=== PATIENT | male | born 1940 | race Caucasian/White ===

== ENCOUNTER 2016-04-20 05:12 | Observation (INO) | payer OTHER ==
--- NOTE | 2016-04-20 05:17 | PROVIDER DOCUMENTATION ---
HPI-Respiratory General - General Source: patient, family - History of Present Illness-Resp Quality of Pain: reports: aching Severity in ED: reports: mild Onset/Duration: reports: 4-6 hours ago Timing: reports: still present Context: reports: recent URI Exposure: reports: unknown cause Cough Quality/Degree: reports: mild Episode Frequency: no prior episodes Current Respiratory Medication Therapy: Initiated see nurses note, Initiated A/ A nebulizer Modifying Factors: improves with: albuterol inhaler Similar Symptoms Previously?: Yes Recently seen or treated by another doctor?: Yes <Mauricio Huang - Last Filed: 04/20/16 05:21> <Lulú Tolentino - Last Filed: 04/20/16 09:18> <Kash Marie - Last Filed: 04/20/16 12:23> - General Stated Complaint: soSOB Time Seen by Provider: 04/20/16 05:16 Allergies/Adverse Reactions: Patient Allergies Allergy/AdvReac Type Severity Reaction Status Date / Time clindamycin Allergy Intermediate NAUSEA/VOMI Verified 06/09/13 09:52 TING promethazine HCl * Allergy Mild nervous Verified 04/12/13 11:09 [From Phenergan] Home Medications: Home Medication List Medication Instructions Recorded Confirmed Last Taken Type Albuterol [Albuterol Neb] 2.5 mg INH RTQ6H 04/12/13 06/09/13 Unknown History Aspirin 81 mg PO DAILY 04/12/13 06/09/13 04/12/13 History LISINOpril [Prinivil] 40 mg PO DAILY 04/12/13 06/09/13 Unknown History Levothyroxine [Synthroid] 50 mcg PO 04/12/13 06/09/13 Unknown History Meloxicam [Mobic] 15 mg PO 04/12/13 06/09/13 Unknown History Nadolol [Corgard] 40 mg PO BID 04/12/13 06/09/13 Unknown History Omeprazole [Prilosec] 40 mg PO 04/12/13 06/09/13 Unknown History Fluticasone 50 Mcg Nasal [place] 1 spray ROSALINA DAILY 06/09/13 06/09/13 Unknown History [Flonase] Hydrochlorothiazide 25 mg PO DAILY 06/09/13 06/09/13 Unknown History Insulin Detemir [Levemir Flexpen] 60 units SQ QHS 06/09/13 06/09/13 Unknown History Montelukast [Singulair] 10 mg PO DAILY 06/09/13 06/09/13 Unknown History Saxagliptin [Onglyza] 5 mg PO DAILY 06/09/13 06/09/13 Unknown History Tramadol [Ultram] 50 mg PO Q6H PRN PRN #20 tablet 06/09/13 Unknown Rx Review of Systems - Adult - REVIEW OF SYSTEMS - ADULT Constitutional: reports: no symptoms reported Eyes: reports: no symptoms reported Ears, Nose, Mouth & Throat: reports: no symptoms reported Cardiovascular: reports: no symptoms reported Respiratory: reports: no symptoms reported Gastrointestinal: reports: no symptoms reported Genitourinary: reports: no symptoms reported Musculoskeletal: reports: no symptoms reported Integumentary: reports: no symptoms reported Neurological: reports: no symptoms reported Psychiatric: reports: no symptoms reported Endocrine: reports: no symptoms reported Hematologic/Lymphatic: reports: no symptoms reported Allergic/Immunologic: reports: no symptoms reported All Other Systems: Reviewed and Negative <Mauricio Huang - Last Filed: 04/20/16 05:21> Past History - Adult - PAST MEDICAL HISTORY-ADULT Review of Records: reports: Old Records Reviewed, Nursing Assessment Review, Medications Reviewed, Social history reviewed & non-contributory. Major Childhood Illnesses: reports: denies history Cardiovascular: reports: HTN Respiratory: reports: denies history Gastrointestinal: reports: diverticulosis Obstetrical/Gynecological: reports: denies history Genitourinary: reports: denies history Musculoskeletal: reports: denies history Neurological: reports: denies history Endocrine/Immune: reports: Diabetes, thyroid disorder Other Conditions: reports: denies history - PRIOR SURGERIES/PROCEDURES Surgical/Procedure History: reports: colonoscopy, cholecystectomy, other (back; shoulder, orchiectomy) - PRIOR HOSPITALIZATIONS Prior Hospitalizations: reports: none - IMMUNIZATION STATUS Childhood Immunizations: See Nurse Assessment Flu Vaccine: See Nurse Assessment - FAMILY HISTORY Family History: reviewed, not pertinent <Mauricio Huang - Last Filed: 04/20/16 05:21> Physical Exam-General - PHYSICAL EXAM-ADULT Initial Vital Signs Reviewed: Yes - CONSTITUTIONAL General Appearance: appears well - EYES Eyes: PERRL/EOMI - HEAD, EARS, NOSE, MOUTH & THROAT HENMT: normocephalic/atraumatic - NECK Neck: non-tender - RESPIRATORY Respiratory: wheezing, dull on percussion, prolonged expiration - CARDIOVASCULAR Cardiovascular: normal peripheral pulses <Mauricio Huang - Last Filed: 04/20/16 05:21> Progress <Mauricio Huang - Last Filed: 04/20/16 05:21> - EKG 1 Time of EKG reading by physician:: 05:34 EKG Read and Signed by:: Kash Marie EKG Interpretation (*Must complete 3 of following elements*): Normal Rate: 85 Rhythm: normal sinus rhythm Comments: normal ECG 2 Time of EKG reading by physician:: 09:08 EKG Read and Signed by:: Kash Marie EKG Interpretation (*Must complete 3 of following elements*): Normal Rate: 74 Rhythm: normal sinus rhythm Comments: normal ECG <Lulú Tolentino - Last Filed: 04/20/16 09:18> <Kash Marie - Last Filed: 04/20/16 12:23> - PLAN OF CARE/RESULTS Progress/Plan/Lab Results: Laboratory Tests 04/20/16 04/20/16 04/20/16 05:15 05:15 05:15 WBC RBC Hgb Hct MCV MCH MCHC RDW Std Deviation Plt Count MPV Immature Gran % (Auto) Neut % (Auto) Lymph % (Auto) [place] % (Auto) Eos % (Auto) Baso % (Auto) Immature Gran # (Auto) Neut # (Auto) Lymph # (Auto) [place] # (Auto) Eos # (Auto) Baso # (Auto) PT INR APTT (Factor Assay) Specimen Type Sample Site pH pCO2 pO2 HCO3 Base Excess Oxyhemoglobin ABG O2 Sat (Calculated) ABG O2 Saturation ABG Carboxyhemoglobin ABG Methemoglobin Jules Test A-a O2 Difference Total Hemoglobin Lactate Liter Flow Blood Gas Modality FiO2 % Sodium 129 L Potassium 4.0 Chloride 91 L Carbon Dioxide 25 Anion Gap 13 BUN 14 Creatinine 1.1 Estimated GFR/1.73 m2 > 60 BUN/Creatinine Ratio 13 Glucose 146 H Calculated Osmolality 262 Calcium 9.7 Magnesium 1.9 Total Bilirubin 0.60 AST 14 ALT 17 Alkaline Phosphatase 77 Creatine Kinase 69 Troponin T < 0.010 Ira-T-Ylsogzrxgge Pept 150 Total Protein 6.7 Albumin 4.3 Globulin 2.0 Albumin/Globulin Ratio 2.0 Plasma Lactate 04/20/16 04/20/16 04/20/16 05:15 05:15 05:48 WBC 6.56 RBC 5.86 Hgb 16.1 Hct 47.3 MCV 80.7 L MCH 27.5 MCHC 34.0 RDW Std Deviation 14.8 H Plt Count 199 MPV 9.8 Immature Gran % (Auto) 0.5 Neut % (Auto) 83.7 H Lymph % (Auto) 12.[address] [place] % (Auto) 2.4 Eos % (Auto) 1.1 Baso % (Auto) 0.3 Immature Gran # (Auto) 0.03 Neut # (Auto) 5.49 Lymph # (Auto) 0.[address] [place] # (Auto) 0.16 Eos # (Auto) 0.07 Baso # (Auto) 0.02 PT 13.4 INR 0.99 APTT (Factor Assay) 30.2 Specimen Type Sample Site pH pCO2 pO2 HCO3 Base Excess Oxyhemoglobin ABG O2 Sat (Calculated) ABG O2 Saturation ABG Carboxyhemoglobin ABG Methemoglobin Jules Test A-a O2 Difference Total Hemoglobin Lactate Liter Flow Blood Gas Modality FiO2 % Sodium Potassium Chloride Carbon Dioxide Anion Gap BUN Creatinine Estimated GFR/1.73 m2 BUN/Creatinine Ratio Glucose Calculated Osmolality Calcium Magnesium Total Bilirubin AST ALT Alkaline Phosphatase Creatine Kinase Troponin T Zes-E-Stqemprlsvy Pept Total Protein Albumin Globulin Albumin/Globulin Ratio Plasma Lactate 2.4 H 04/20/16 04/20/16 04/20/16 05:53 08:30 08:30 WBC RBC Hgb Hct MCV MCH MCHC RDW Std Deviation Plt Count MPV Immature Gran % (Auto) Neut % (Auto) Lymph % (Auto) [place] % (Auto) Eos % (Auto) Baso % (Auto) Immature Gran # (Auto) Neut # (Auto) Lymph # (Auto) [place] # (Auto) Eos # (Auto) Baso # (Auto) PT INR APTT (Factor Assay) Specimen Type ARTERIAL Sample Site L BRACHIAL pH 7.47 H pCO2 30 L pO2 63 HCO3 24.2 Base Excess -0.7 Oxyhemoglobin 91.8 L ABG O2 Sat (Calculated) 20.2 ABG O2 Saturation 95.0 ABG Carboxyhemoglobin 2.40 ABG Methemoglobin 1.1 Jules Test NO A-a O2 Difference 99.0 Total Hemoglobin 15.7 Lactate 2.40 H Liter Flow 2.0 Blood Gas Modality CANNULA FiO2 % 28.0 Sodium Potassium Chloride Carbon Dioxide Anion Gap BUN Creatinine Estimated GFR/1.73 m2 BUN/Creatinine Ratio Glucose Calculated Osmolality Calcium Magnesium Total Bilirubin AST ALT Alkaline Phosphatase Creatine Kinase 111 Troponin T < 0.010 Zeg-A-Nrzkshcjivy Pept Total Protein Albumin Globulin Albumin/Globulin Ratio Plasma Lactate Orders Category Date Time Status Cardiac Monitoring DIRECTED Care 04/20/16 05:17 Active Oxygen Therapy- ED Nursing DIRECTED Care 04/20/16 05:17 Active Saline Loc NOW Care 04/20/16 05:17 Active CHEST-2 VIEWS [RAD] Stat Exams 04/20/16 05:17 Completed ABG [RESP] Routine Lab 04/20/16 05:53 Completed BLOOD CULTURE [BLDCUL] Stat Lab 04/20/16 05:28 Ordered CBC WITH ELECTRONIC DIFF [HEME] Stat Lab 04/20/16 05:15 Completed CK PROFILE [SP CHEM] Stat Lab 04/20/16 05:15 Completed CK PROFILE [SP CHEM] Stat Lab 04/20/16 08:30 Completed COMPREHENSIVE METABOLIC PANEL [CHEM] Stat Lab 04/20/16 05:15 Completed LACTATE, PLASMA [CHEM] Stat Lab 04/20/16 05:48 Completed MAGNESIUM [CHEM] Stat Lab 04/20/16 05:15 Completed PRO B-NATRIURETIC PEPTIDE Stat Lab 04/20/16 05:15 Com[address]IME WITH INR PL [COAG] Stat Lab 04/20/16 05:15 Completed PSA DIAGNOSTIC Stat Lab 04/20/16 08:[address] [COAG] Stat Lab 04/20/16 05:15 Completed TROPONIN T Stat Lab 04/20/16 05:15 Completed TROPONIN T Stat Lab 04/20/16 08:30 Completed UA [UA NIMS W/REFLEX CULT PL] [URINALYSIS] Stat Lab 04/20/16 08:49 Uncollected Albuterol 2.5MG/Ipratrop 0.5MG [Duoneb (A & A)] Med 04/20/16 05:21 Discontinued 3 ml INH NOW ONE Albuterol [Albuterol Neb] Med 04/20/16 07:38 Discontinued 2.5 mg INH NOW ONE Aerosol Treatments Routine Oth 04/20/16 05:21 Completed Aerosol Treatments Routine Oth 04/20/16 07:38 Active Aerosol Treatments Stat Oth 04/20/16 05:21 Completed Aerosol Treatments Stat Oth 04/20/16 05:21 Completed Aerosol Treatments Stat Oth 04/20/16 07:38 Active EKG [EKG] Stat Ther 04/20/16 05:17 Draft EKG [EKG] Stat Ther 04/20/16 08:16 Ordered Vital Signs - 24 hr 04/20/16 04/20/16 04/20/16 05:16 05:25 05:42 Temperature 96.8 F L Pulse Rate 89 87 86 Respiratory 20 21 16 Rate Blood Pressure 143/81 148/80 O2 Sat by Pulse 96 94 L 95 Oximetry 04/20/16 07:43 Temperature Pulse Rate 74 Respiratory 15 Rate Blood Pressure O2 Sat by Pulse 97 Oximetry (Lulú Tolentino) Departure <Mauricio Huang - Last Filed: 04/20/16 05:21> <Lulú Tolentino - Last Filed: 04/20/16 09:18> - Departure Time of Disposition Order: 12:15 Certified Medical Emergency: Emergent <Kash Marie - Last Filed: 04/20/16 12:23> - Departure DIAGNOSIS: COPD with hypoxia UTI (urinary tract infection) Qualifiers: Urinary tract infection type: site unspecified Hematuria presence: without hematuria Qualified Code(s): N39.0 - Urinary tract infection, site not specified Disposition: ADMITTED INPATIENT 09 Condition: Stable Attestation - Scribe Verification/Attestation Scribe:: Lulú Tolentino Acting as Scribe for:: Kash Marie Scribe documention review:: This chart was documented by a scribe and accurately reflects the service the provider performed and the decisions made by the provider. <Lulú Tolentino - Last Filed: 04/20/16 09:18> Physician Attestation
[2016-04-20] MEDS ORDERED: DUONEB (A & A) INH ONE (05:21)
[2016-04-20 05:32] LABS: MANUAL DIFF NEEDED? NO
[2016-04-20 05:34] LABS: BASO% 0.3 % (0.0-0.8); EOS# 0.07 X1000 (0.0-0.7); EOS% 1.1 % (0.0-10.0); HEMATOCRIT 47.3 % (42.0-52.0); HEMOGLOBIN 16.1 g/dL (14.0-18.0); IMM GRAN# 0.03 X1000 (0.0-0.04); IMM GRAN% 0.5 % (0.0-0.5); LYMPH# 0.79 X1000 (1.2-3.4); MCH 27.5 PG (27-31); MCV 80.7 FL (81-99); MONO# 0.16 X1000 (0.11-0.59); MONO% 2.4 % (1.7-9.3); MPV 9.8 FL (7.4-10.4); NEUT% 83.7 % (42.2-75.2); PLT 199 X1000 (130-400); RBC 5.86 XMIL (4.7-6.1)
[2016-04-20 05:47] LABS: INR 0.99 (0.86-1.15); PROTIME 13.4 Seconds (12.1-15.5)
[2016-04-20 05:48] LABS: PTT PL 30.2 Seconds (22.6-43.9)
[2016-04-20 06:01] LABS: AGAP 13; ALBUMIN 4.3 g/dL (3.5-5.0); ALKALINE PHOSPHATASE 77 U/L (32-122); BUN 14 mg/dL (8-22); CALCIUM 9.7 mg/dL (8.8-10.2); CHLORIDE 91 mmol/L (98-107); CK PROFILE 69 U/L (24-204); COSMO 262; GOT 14 U/L (10-34); GPT 17 U/L (10-44); MAGNESIUM 1.9 mg/dL (1.5-2.7); SODIUM 129 mmol/L (136-145); TCO2 25 mmol/L (25-35); TOTAL PROTEIN 6.7 g/dL (6.3-8.3)
[2016-04-20 06:09] LABS: BE -0.7 mmoll (-3.0-3.0); BLOOD TYPE ARTERIAL; DRAW SITE L BRACHIAL; METHB 1.1 % (0.0-1.5); O2(CT) 20.2 mL/dL (15.0-23.0); PCO2(98.6) 30 mmHg (35-45); PO2(98.6) 63 mmHg (60-100); SAMPLE BLOOD; THB 15.7 g/dL (11.5-17.4); pH(98.6) 7.47 (7.35-7.45)
[2016-04-20 06:10] LABS: ALLEN TEST NO; MODALITY CANNULA
--- NOTE | 2016-04-20 06:37 | EKG Report ---
Test Performed on : 04/20/2016 05:34:33 AM Test Reason : CHEST PAIN Blood Pressure : / mmHG Vent. Rate : 085 BPM Atrial Rate : 085 BPM P-R Int : 150 ms QRS Dur : 084 ms QT Int : 352 ms P-R-T Axes : 032 021 031 degrees QTc Int : 418 ms Normal sinus rhythm. Normal ECG No previous ECGs available Unconfirmed Result
--- NOTE | 2016-04-20 06:47 | Diag Imaging Result Document ---
PROCEDURE NAME: CHEST-2 VIEWS - 04/20/2016 FRONTAL AND LATERAL CHEST 2 VIEWS: COMPARISON: 12/10/2013. FINDINGS: The lungs are well expanded. The heart is not enlarged. The vessels are not distended. No pneumonia. No pleural effusions. IMPRESSION: No acute abnormality.
[2016-04-20] MEDS ORDERED: ALBUTEROL NEB INH ONE (07:38)
--- NOTE | 2016-04-20 09:43 | EKG Report ---
Test Performed on : 04/20/2016 09:08:04 AM Test Reason : repeat Blood Pressure : / mmHG Vent. Rate : 074 BPM Atrial Rate : 074 BPM P-R Int : 154 ms QRS Dur : 088 ms QT Int : 374 ms P-R-T Axes : 078 082 047 degrees QTc Int : 415 ms Normal sinus rhythm. Normal ECG When compared with ECG of 20-APR-2016 05:34, (Unconfirmed) Questionable change in QRS axis Unconfirmed Result
[2016-04-20 10:04] LABS: BILIRUBIN URINE NEGATIVE (NEGATIVE); BLOOD URINE TRACE (NEGATIVE); CLARITY CLEAR (CLEAR); COLOR YELLOW; GLUCOSE URINE NEGATIVE (NEGATIVE); LEUKOCYTES URINE 1+ (NEGATIVE); NITRITE URINE NEGATIVE (NEGATIVE); PH URINE 6.5; UROBILINOGEN URINE NORMAL
[2016-04-20 10:10] LABS: URINE WBC 20-40 /HPF (<10)
[2016-04-20 10:11] LABS: URINE CULTURE PL NEEDED? YES; URINE EPITHELIAL CELLS <10 /HPF (<10); URINE SOURCE CLEAN CATCH
[2016-04-20 10:42] LABS: BE 1.3 mmoll (-3.0-3.0); BLOOD TYPE ARTERIAL; DRAW SITE L RADIAL; METHB 1.2 % (0.0-1.5); O2(CT) 19.8 mL/dL (15.0-23.0); PCO2(98.6) 36 mmHg (35-45); PO2(98.6) 72 mmHg (60-100); SAMPLE BLOOD; SAO2 96.4 % (95.0-100.0); THB 15.1 g/dL (11.5-17.4); pH(98.6) 7.45 (7.35-7.45)
[2016-04-20 10:44] LABS: MODALITY ROOM AIR
[2016-04-20 10:45] LABS: ALLEN TEST YES
[2016-04-20] MEDS: NS 1,000 ML IV SCH ×2 (14:41→20:09)
[2016-04-20] MEDS ORDERED: DUONEB (A & A) INH PRN (14:56)
[2016-04-20] MEDS ORDERED: ROCEPHIN 1 GM/NS 50 ML IV SCH (15:15)
[2016-04-20] MEDS: FERROUS SULFATE PO SCH (16:27)
--- NOTE | 2016-04-20 16:28 | HISTORY AND PHYSICAL ---
PRIMARY CARE PHYSICIAN: Scooter Lira MD CHIEF COMPLAINT ON ADMISSION: "I could not breathe earlier today so I came to the ER." HISTORY OF PRESENTING ILLNESS: This is a 75-year-old male, who presented to the ER at [facility] for difficulty breathing and shortness of breath. He states he has a history of asthmatic COPD. On arrival, he had an O2 saturation on room air of 96%. Laboratory data was essentially benign. His chest x-ray showed no acute abnormality, but he was admitted for observation for further evaluation and treatment as he was noted to have a sodium level of 129. PAST MEDICAL HISTORY: Diabetes type 2. Hypertension. GERD. BPH. Hypothyroidism. Diverticulitis. PAST SURGICAL HISTORY: Sinus surgery in 2016. Prostate surgery in 2001. Cholecystectomy. Left shoulder sling surgery. Bilateral cataract surgery. FAMILY HISTORY: Noncontributory. SOCIAL HISTORY: Currently lives with his . Denied any tobacco, alcohol, or illicit drug use. ALLERGIES: Clindamycin and Phenergan. HOME MEDICATIONS: He takes Norvasc 10 mg p.o. daily, vitamin D2 one capsule weekly, will be held, ferrous sulfate 325 mg p.o. b.i.d., Breo Ellipta 1 inhalation daily, multivitamin p.o. daily. Amoret-3 soft gel p.o. b.i.d. MiraLAX 17 g p.o. daily. Potassium 20 mEq p.o. daily. Meloxicam 15 mg p.o. daily. Aspirin 81 mg p.o. daily. Flonase 1 spray nasally daily, hydrochlorothiazide 25 mg p.o. daily will be held. Levemir FlexPen 25 units subcutaneously b.i.d., Prinivil 40 mg p.o. daily, Synthroid 50 mcg p.o. daily, Singulair 10 mg p.o. daily, Corgard 40 mg p.o. b.i.d., and Prilosec 40 mg p.o. daily. LABORATORY DATA: White blood cell count of 6.56, hemoglobin 16.1, hematocrit 47.3, platelets 199,000. PT and INR of 13.4 and 0.99. ABG with a pH of 7.47, pCO2 of 30, pO2 of 63 with a bicarb of 24.2 on 2 L via nasal cannula. Approximately 5 hours later, he had a repeat blood gas that showed a pH of 7.45, pCO2 36, PO2 72, bicarb 25.8 on room air. Sodium of 129, potassium 4, chloride 91, CO2 25, BUN of 14, creatinine 1.1, glucose 146, magnesium 1.9. Creatine kinase of 69 with a troponin of less than 0.010. PSA 4.84. Urinalysis with negative nitrites, 1+ WBCs, 1+ bacteria and asymptomatic. Chest x-ray with no acute disease identified. EKG showed normal sinus rhythm at 85. REVIEW OF SYSTEMS: He complained of fever and chills for the past 2 days. Denied any blurred vision or dizziness, chest pain. He denied any cough. He complained of shortness of breath. Denied any constipation, diarrhea, burning or hurting with urination, but states that he had some frequency of urination on Thursday night and urgency, but that has since resolved. PHYSICAL EXAMINATION: VITAL SIGNS: On arrival showed a temperature of 96.8 degrees, pulse 89, respirations 20, blood pressure 143/81, saturating 96% on room air. GENERAL: This is a 75-year-old male, who is lying in the bed and answers questions appropriately. HEENT: Normocephalic and atraumatic. Pupils are equal, round, reactive to light. Extraocular movements are intact. Oropharynx and nares are clear. NECK: Supple. LUNGS: Clear to auscultation bilaterally with equal lung expansion and chest wall movement. HEART: Regular rate and rhythm. No murmurs, rubs, or gallops. ABDOMEN: Soft, nontender, nondistended. Bowel sounds are present x4 quadrants. EXTREMITIES: There is no clubbing, cyanosis, or edema. NEUROLOGICAL: The cranial nerves 2-12 appear grossly intact. ASSESSMENT: 1. An acute chronic obstructive pulmonary disease exacerbation. Mild. 2. Hyponatremia. 3. Diabetes. 4. Hypertension. PLAN: He is being admitted to the Medical Unit at [facility]. Placed on telemetry. O2 per protocol. Healthy heart diet. Blood cultures x2 are pending. We will obtain a urine culture. We will give normal saline at 125 mg an hour. Again, we will hold his hydrochlorothiazide. Antinuclear antibody nebulizers q.4 p.r.n. and recheck a basic metabolic panel in the a.m. Dictated by AMANDA Herrera for Yaerd Amato MD pt examined, agree with above, hopefully home in [facility]
[2016-04-20] MEDS ORDERED: TYLENOL PO ONE (19:40)
[2016-04-20] MEDS: FISH OIL CONCENTRATE PO SCH (20:08)
[2016-04-20] MEDS: CORGARD PO SCH (20:19)
[2016-04-20] MEDS ORDERED: FLOMAX PO SCH (21:00)
[2016-04-20] MEDS ORDERED: LEVEMIR INSULIN *HA SUBQ SCH (21:00)
[2016-04-20] MEDS ORDERED: FLUZONE QUAD 2016-2017 SYRINGE IM ONE (22:22)
[2016-04-20] MEDS: PYRIDIUM PO SCH (22:44)
[2016-04-21] MEDS: NS 1,000 ML IV SCH ×3 (06:01→12:25)
[2016-04-21 06:13] LABS: HEMATOCRIT 40.9 % (42.0-52.0); HEMOGLOBIN 13.8 g/dL (14.0-18.0); MCH 27.5 PG (27-31); MCHC 33.7 g/dL (33-37); MCV 81.5 FL (81-99); MPV 10.1 FL (7.4-10.4); RBC 5.02 XMIL (4.7-6.1)
[2016-04-21 06:21] LABS: AGAP 8; BUN 13 mg/dL (8-22); CALCIUM 8.9 mg/dL (8.8-10.2); CHLORIDE 98 mmol/L (98-107); COSMO 264; SODIUM 130 mmol/L (136-145); TCO2 24 mmol/L (25-35)
[2016-04-21] MEDS ORDERED: SYNTHROID PO SCH (07:00)
[2016-04-21] MEDS ORDERED: PRILOSEC PO SCH (07:00)
[2016-04-21] MEDS ORDERED: BREO ELLIPTA 200/25 MCG INH INH SCH (07:30)
[2016-04-21 07:31] VITALS: BP 123/44
[2016-04-21] MEDS: FERROUS SULFATE PO SCH (08:54)
[2016-04-21] MEDS: FISH OIL CONCENTRATE PO SCH (08:54)
[2016-04-21] MEDS: PYRIDIUM PO SCH ×2 (08:54→12:37)
[2016-04-21] MEDS: CORGARD PO SCH (08:55)
[2016-04-21] MEDS ORDERED: NORVASC PO SCH (09:00)
[2016-04-21] MEDS ORDERED: ASPIRIN PO SCH (09:00)
[2016-04-21] MEDS ORDERED: FLONASE NAS SCH (09:00)
[2016-04-21] MEDS ORDERED: PRINIVIL PO SCH (09:00)
[2016-04-21] MEDS ORDERED: ONGLYZA PO SCH (09:00)
[2016-04-21] MEDS ORDERED: KLOR-CON PO SCH (09:00)
[2016-04-21] MEDS ORDERED: HYDROCHLOROTHIAZIDE PO SCH (09:00)
[2016-04-21] MEDS ORDERED: MULTI-VITAMIN PO SCH (09:00)
[2016-04-21] MEDS ORDERED: MIRALAX PO SCH (09:00)
[2016-04-21] MEDS ORDERED: SINGULAIR PO SCH (09:00)
--- NOTE | 2016-04-22 10:24 | DISCHARGE SUMMARY ---
ADMISSION DATE: 04/20/2016 DISCHARGE DATE: 04/21/2016 DIAGNOSES: 1. Hyponatremia, chronic. 2. Acute chronic obstructive pulmonary disease exacerbation, mild. 3. Hypothyroid. 4. History of benign prostatic hypertrophy with bladder outlet obstruction. 5. Hypertension. DIAGNOSTICS: On 04/20/2016, chest x-ray reveals well expanded. Heart is not enlarged. Vessels are not distended. No pneumonia. No pleural effusions. No acute abnormality. MICROBIOLOGY: Urine culture reveals no growth. Blood cultures x2 are pending. HOSPITAL COURSE: Mr. Reeves presented to the emergency room complaining of shortness of breath. He had a room air saturation of 96% on arrival. The chest x-ray showed no acute abnormality. He was found to have a sodium of 129. Today, sodium is 130. In reviewing his records, he has had chronic hyponatremia since back in 2013. Since admission, he has denied any further shortness of breath. No dyspnea on exertion. No PND. No chest pain. No chest pressure. No palpitations. The labs have remained stable. Blood sugars have been between 140s and 150s. We did continue his home medications adding DuoNebs. Lungs have remained clear. He has been afebrile. We did continue his Synthroid, and he did have a TSH of 1.96. He has been up, walking through the halls, with no complaints of shortness of breath. No dyspnea on exertion with room air saturations while walking of 99%-100%. DISCHARGE PHYSICAL EXAMINATION: Cardiovascular: Regular rate and rhythm. S1 and S2 appreciated. Pulmonary: Breath sounds are clear. No increased work of breathing. Chest rises and falls symmetrically with respiration. Gastrointestinal: Abdomen is soft, nontender, nondistended. Bowel sounds in all 4 quadrants. Extremities: No clubbing, cyanosis, or edema. Calves are nontender. Pulses are palpable x4. Discharge Vital Signs: Blood pressure is 123/44 with a heart rate of 63, respirations are 18, temperature is 97.7 degrees oral with room air saturations of 97%- 100%. DISCHARGE ACTIVITY: As tolerated. DISCHARGE MEDICATIONS: 1. Norvasc 10 mg daily. 2. Aspirin 81 mg daily. 3. Iron 325 b.i.d. 4. Flonase 1 spray daily. 5. Breo Ellipta 200/25, one puff daily. 6. Levemir insulin 60 units subcutaneous at bedtime as prehospitalization. 7. Synthroid 50 mcg daily. 8. Prinivil 40 mg daily. 9. Singulair 10 mg daily. 10. Multivitamin 1 daily. 11. Corgard 40 mg b.i.d. 12. Prilosec 40 mg daily. 13. MiraLAX 8.5 g daily. 14. Klor-Con 20 daily. 15. Onglyza 5 daily. 16. Flomax 0.4 at bedtime. 17. Omnicef 300 mg p.o. b.i.d. x10 days. 18. Mobic 15 mg daily. DISCHARGE DIET: Diabetic, healthy heart. FOLLOWUP: 1. He is to follow up with his primary care physician in 1-2 weeks, sooner if needed. 2. Dr. Jomar Montes, Urology. Keep appointment as scheduled. He is being discharged home in stable condition with family members. This is a greater than 30 minute discharge from 1:00 to 1:37. Dictated by AMANDA Mann for Yared Amato MD
== END 2016-04-21 14:13 | disposition home or self-care (01) ==
LOC: P.ED 05:12 → P.MEDSURG 12:13
PROVIDERS: ATTEND Internal Medicine
DX: E87.1 Hypo-osmolality and hyponatremia (principal); J44.1 Chronic obstructive pulmonary disease with (acute) exacerbation; E03.9 Hypothyroidism, unspecified; N40.0 Benign prostatic hyperplasia without lower urinary tract symptoms; I10 Essential (primary) hypertension; E11.9 Type 2 diabetes mellitus without complications; K57.92 Diverticulitis of intestine, part unspecified, without perforation or abscess without bleeding; R06.02 Shortness of breath; R50.9 Fever, unspecified; M79.1 Myalgia; E66.9 Obesity, unspecified; K21.9 Gastro-esophageal reflux disease without esophagitis; R20.0 Anesthesia of skin; Z79.899 Other long term (current) drug therapy; Z79.1 Long term (current) use of non-steroidal anti-inflammatories (NSAID); Z79.51 Long term (current) use of inhaled steroids; Z79.4 Long term (current) use of insulin; Z79.82 Long term (current) use of aspirin
CPT/HCPCS: 36415; 71020; 80048; 80053; 81001; 82550; 82805; 82948; 83605; 83735; 83880; 84153; 84443; 84484; 85025; 85027; 85610; 85730; 87040; 87088; 93005; 94640; 94761; 99285; J0696; J1815; J7030